=== PATIENT | male | born 1960 | race American Indian/Alaskan Native ===

== ENCOUNTER 2017-03-21 09:12 | Emergency (ER) | payer OTHER ==
[2017-03-21 10:51] LABS: Basophils # (Auto) 0.1 K/mm3 (0.0-0.1); Eosinophils % (Auto) 0.4 % (0.0-4.3); Hematocrit 45.8 % (35.5-45.6); Hemoglobin 15.4 gm/dl (11.8-15.2); Lymphocytes # (Auto) 0.9 K/mm3 (1.2-5.4); Lymphocytes % (Auto) 13.6 % (13.4-35.0); Mean Corpuscular HGB Conc 34 % (32-34); Mean Corpuscular Hemoglobin 31 pg (28-32); Mean Corpuscular Volume 91 fl (84-94); Monocytes # (Auto) 0.5 K/mm3 (0.0-0.8); Monocytes % (Auto) 7.2 % (0.0-7.3); Platelet Count 141 K/mm3 (140-440); Red Blood Count 5.06 M/mm3 (3.65-5.03); Red Cell Distribution Width 13.8 % (13.2-15.2)
--- NOTE | 2017-03-21 10:53 | Emergency Department Report ---
ED General Adult HPI - General Stated complaint: OVERDOSE Time Seen by Provider: 03/21/17 10:00 - History of Present Illness Initial comments: The only information I received on this patient was a triage form that states overdose. I did not receive a die cutter report. The charge nurse tells me that the paramedics informed them that that the patient reported to them that he took a "orange pill". However at the time of my encounter the patient is totally nonverbal. He is protecting his airway. He is gesturing with his hands. He is following commands. He is not providing any historical information. I received a call from the patient's family who state they are coming to the hospital but are more than 2 hours away. They deny that this patient has any history of psychiatric or mental health issues or has been taking any related medication. 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 They state the only medicine that he takes is something for high blood pressure. -: unknown - Related Data Allergies Allergy/AdvReac Type Severity Reaction Status Date / Time No Known Allergies Allergy Verified 03/21/17 09:35 ED Review of Systems ROS: Stated complaint: OVERDOSE Other details as noted in HPI Comment: Unobtainable due to pts medical conditions ED Past Medical Hx - Past Medical History Hx Hypertension: Yes - Surgical History Past Surgical History?: No - Social History Substance Use Type: Other (unknown see above history of "orange pill") ED Physical Exam - General Limitations: Altered Mental Status General appearance: alert, in no apparent distress - Head Head exam: Present: atraumatic, normocephalic - Eye Eye exam: Present: normal appearance. Absent: scleral icterus - ENT ENT exam: Present: mucous membranes moist - Neck Neck exam: Present: normal inspection - Respiratory Respiratory exam: Present: normal lung sounds bilaterally. Absent: respiratory distress - Cardiovascular Cardiovascular Exam: Present: regular rate, normal rhythm. Absent: systolic murmur, diastolic murmur, rubs, gallop - GI/Abdominal GI/Abdominal exam: Present: soft, normal bowel sounds. Absent: distended, tenderness, guarding, rebound, rigid - Rectal Rectal exam: Present: deferred - Extremities Exam Extremities exam: Present: normal inspection - Back Exam Back exam: Present: normal inspection - Neurological Exam Neurological exam: Present: alert, oriented X3, CN II-XII intact (on limited exam). Absent: motor sensory deficit - Psychiatric Psychiatric exam: Present: depressed, flat affect, other (patient will follow basic commands. However he does not respond verbally. He gestures but does not speak.) - Skin Skin exam: Present: warm, dry, intact, normal color. Absent: rash ED Course - Reevaluation(s) Reevaluation #1: Patient will be worked up for altered mental status to include CT evaluation. The patient is not communicating with the nurse somewhat coherently. He states that his son gave him something to eat which was milky with black dots. He states that he tried it and then 40 minutes later he started getting hot and dizzy. Apparently he experienced some vertigo as well. EMS was summoned. 03/21/17 10:54 Reevaluation #2: The patient shared with the information security specialist that he consumes some sort of substance laced candy bar. Whether it contained THC or not I do not know. However his marijuana screen is negative. The patient has been fully ambulatory. On reexamination he states that he feels better and he is ready to go home. He is appropriate for outpatient disposition. 03/21/17 14:46 ED Medical Decision Making - Lab Data Result diagrams: 03/21/17 10:46 03/21/17 10:46 Laboratory Results - last 24 hr 03/21/17 03/21/17 03/21/17 10:46 10:46 10:46 WBC RBC Hgb Hct MCV MCH MCHC RDW Plt Count Lymph % (Auto) [place] % (Auto) Eos % (Auto) Baso % (Auto) Lymph # [place] # Eos # Baso # Seg Neutrophils % Seg Neutrophils # Sodium 140 Potassium 3.8 Chloride 99.5 Carbon Dioxide 26 Anion Gap 18 BUN 14 Creatinine 1.3 Estimated GFR 57 BUN/Creatinine Ratio 11 Glucose 159 H Calcium 9.0 Total Bilirubin 0.40 Direct Bilirubin < 0.2 AST 31 ALT 32 Alkaline Phosphatase 75 Total Protein 7.3 Albumin 4.4 Albumin/Globulin Ratio 1.5 Plasma/Serum Alcohol < 0.01 03/21/17 10:46 WBC 6.6 RBC 5.06 H Hgb 15.4 H Hct 45.8 H MCV 91 MCH 31 MCHC 34 RDW 13.8 Plt Count 141 Lymph % (Auto) 13.6 [place] % (Auto) 7.2 Eos % (Auto) 0.4 Baso % (Auto) 1.0 Lymph # 0.9 L [place] # 0.5 Eos # 0.0 Baso # 0.1 Seg Neutrophils % 77.8 H Seg Neutrophils # 5.1 Sodium Potassium Chloride Carbon Dioxide Anion Gap BUN Creatinine Estimated GFR BUN/Creatinine Ratio Glucose Calcium Total Bilirubin Direct Bilirubin AST ALT Alkaline Phosphatase Total Protein Albumin Albumin/Globulin Ratio Plasma/Serum Alcohol Laboratory Results - last 24 hr 03/21/17 03/21/17 03/21/17 10:46 10:46 10:46 WBC RBC Hgb Hct MCV MCH MCHC RDW Plt Count Lymph % (Auto) [place] % (Auto) Eos % (Auto) Baso % (Auto) Lymph # [place] # Eos # Baso # Seg Neutrophils % Seg Neutrophils # Sodium 140 Potassium 3.8 Chloride 99.5 Carbon Dioxide 26 Anion Gap 18 BUN 14 Creatinine 1.3 Estimated GFR 57 BUN/Creatinine Ratio 11 Glucose 159 H Calcium 9.0 Total Bilirubin Direct Bilirubin AST ALT Alkaline Phosphatase Total Protein Albumin Albumin/Globulin Ratio Urine Color Urine Turbidity Urine pH Ur Specific [place] Urine Protein Urine Glucose (UA) Urine Ketones Urine Blood Urine Nitrite Urine Bilirubin Urine Urobilinogen Ur Leukocyte Esterase Urine WBC (Auto) Urine RBC (Auto) Urine Bacteria (Auto) Hyaline Casts Urine Mucus Salicylates < 0.3 L Urine Opiates Screen Urine Methadone Screen Acetaminophen < 15.0 Ur Barbiturates Screen Ur Phencyclidine Scrn Ur Amphetamines Screen U Benzodiazepines Scrn Urine Cocaine Screen U Marijuana (THC) Screen Drugs of Abuse Note Plasma/Serum Alcohol 03/21/17 03/21/17 03/21/17 10:46 10:46 10:46 WBC 6.6 RBC 5.06 H Hgb 15.4 H Hct 45.8 H MCV 91 MCH 31 MCHC 34 RDW 13.8 Plt Count 141 Lymph % (Auto) 13.6 [place] % (Auto) 7.2 Eos % (Auto) 0.4 Baso % (Auto) 1.0 Lymph # 0.9 L [place] # 0.5 Eos # 0.0 Baso # 0.1 Seg Neutrophils % 77.8 H Seg Neutrophils # 5.1 Sodium Potassium Chloride Carbon Dioxide Anion Gap BUN Creatinine Estimated GFR BUN/Creatinine Ratio Glucose Calcium Total Bilirubin 0.40 Direct Bilirubin < 0.2 AST 31 ALT 32 Alkaline Phosphatase 75 Total Protein 7.3 Albumin 4.4 Albumin/Globulin Ratio 1.5 Urine Color Urine Turbidity Urine pH Ur Specific [place] Urine Protein Urine Glucose (UA) Urine Ketones Urine Blood Urine Nitrite Urine Bilirubin Urine Urobilinogen Ur Leukocyte Esterase Urine WBC (Auto) Urine RBC (Auto) Urine Bacteria (Auto) Hyaline Casts Urine Mucus Salicylates Urine Opiates Screen Urine Methadone Screen Acetaminophen Ur Barbiturates Screen Ur Phencyclidine Scrn Ur Amphetamines Screen U Benzodiazepines Scrn Urine Cocaine Screen U Marijuana (THC) Screen Drugs of Abuse Note Plasma/Serum Alcohol < 0.01 03/21/17 03/21/17 Unknown Unknown WBC RBC Hgb Hct MCV MCH MCHC RDW Plt Count Lymph % (Auto) [place] % (Auto) Eos % (Auto) Baso % (Auto) Lymph # [place] # Eos # Baso # Seg Neutrophils % Seg Neutrophils # Sodium Potassium Chloride Carbon Dioxide Anion Gap BUN Creatinine Estimated GFR BUN/Creatinine Ratio Glucose Calcium Total Bilirubin Direct Bilirubin AST ALT Alkaline Phosphatase Total Protein Albumin Albumin/Globulin Ratio Urine Color Yellow Urine Turbidity Clear Urine pH 5.0 Ur Specific [place] 1.027 Urine Protein 100 mg/dl Urine Glucose (UA) Neg Urine Ketones Neg Urine Blood Neg Urine Nitrite Neg Urine Bilirubin Neg Urine Urobilinogen < 2.0 Ur Leukocyte Esterase Neg Urine WBC (Auto) 1.0 Urine RBC (Auto) 2.0 Urine Bacteria (Auto) 1+ Hyaline Casts 8 Urine Mucus 2+ Salicylates Urine Opiates Screen Presumptive negative Urine Methadone Screen Presumptive negative Acetaminophen Ur Barbiturates Screen Presumptive negative Ur Phencyclidine Scrn Presumptive negative Ur Amphetamines Screen Presumptive negative U Benzodiazepines Scrn Presumptive negative Urine Cocaine Screen Presumptive negative U Marijuana (THC) Screen Presumptive negative Drugs of Abuse Note Disclamer Plasma/Serum Alcohol - Radiology Data Radiology results: report reviewed (CT of the head and plain chest x-ray showed no acute process) Critical care attestation.: If time is entered above; I have spent that time in minutes in the direct care of this critically ill patient, excluding procedure time. ED Disposition Clinical Impression: Altered mental status Qualifiers: Altered mental status type: transient alteration of awareness Qualified Code(s) : R40.4 - Transient alteration of awareness Disposition: DC-01 TO HOME OR SELFCARE Is pt being admited?: No Does the pt Need Aspirin: No Condition: Stable Instructions: Altered Mental Status (ED) Additional Instructions: [facility]. See referral for a local clinic. Return if any further problems as needed today. Referrals: PRIMARY CARE, [Primary Care Provider] - 3-[address] [facility] [Provider Group] - 2-3 Days Time of Disposition: 14:48
--- NOTE | 2017-03-21 11:06 | XRay Report ---
AP CHEST: HISTORY: Hypertension AP view of the chest demonstrates a normal mediastinal and cardiac contour with clear lungs and normal bony and soft tissue structures. IMPRESSION: Unremarkable AP chest.
[2017-03-21 11:08] LABS: Alanine Aminotransferase 32 units/L (7-56); Albumin 4.4 g/dL (3.9-5)
--- NOTE | 2017-03-21 11:19 | Cat Scan Report ---
CT HEAD WITHOUT CONTRAST: HISTORY: Altered mental status. TECHNIQUE: Sequential 2.5mm CT images. COMPARISON: none. FINDINGS: Cerebral Parenchyma: Mild to moderate hypoattenuation is identified in the white matter bilaterally. This is a nonspecific finding but is most likely related to chronic small vessel disease. The remaining brain parenchyma has normal attenuation. The bess-white interface is well defined. Cerebellum: Within normal limits. Brainstem: Within normal limits. Ventricles: Normal. Sella: Normal. Extra-axial spaces: Normal. Basal Cisterns: Normal. Intracranial Hemorrhage: None. Midline Shift: None. Calvarium: Normal. Sinuses: Normal. Mastoid Air Cells: Normal. Visualized Orbits: Normal. IMPRESSION: Nonspecific white matter changes as described above. No acute intracranial process is appreciated.
[2017-03-21 11:20] LABS: Bilirubin,Direct < 0.2 mg/dL (0-0.2)
[2017-03-21 13:13] LABS: Amphetamine Screen,Urine PRESUMPTIVE NEGATIVE; Bacteria,Urine 1+ /HPF (Negative); Benzodiazepines Screen,Urine PRESUMPTIVE NEGATIVE; Bilirubin,Urine NEG (Negative); Blood,Urine NEG (Negative); Cocaine Screen,Urine PRESUMPTIVE NEGATIVE; Color,Urine Yellow (Yellow); Hyaline Casts,Urine 8 /LPF; Methadone Screen,Urine PRESUMPTIVE NEGATIVE; Mucus,Urine 2+ /HPF; Nitrite,Urine NEG (Negative); Opiate Screen,Urine PRESUMPTIVE NEGATIVE; Urobilinogen,Urine < 2.0 mg/dL (<2.0)
[2017-03-21 13:29] LABS: Cannabinoid Screen,Urine PRESUMPTIVE NEGATIVE
[2017-03-21 16:01] VITALS: BP 106/69
== END 2017-03-21 15:10 | disposition home or self-care (01) ==
LOC: ED 09:12
DX: R40.4 Transient alteration of awareness (principal); Z79.899 Other long term (current) drug therapy
CPT/HCPCS: 36415; 70450; 71046; 80048; 80074; 80307; 81001; 85025; 93005; 93010; 99284; G0480; 80320